=== PATIENT | female | born 2000 | race Caucasian/White ===

== ENCOUNTER 2021-07-23 16:55 | Emergency (ER) | payer BC, SELFPAY ==
[2021-07-23 16:59] VITALS: BP 134/76; PULSE 94; RESP 17; TEMP 36.3; O2SAT 99
--- NOTE | 2021-07-23 17:00 | DI.RAD_ITS ---
Exam(s) XR PELVIS AP EXAM: XR PELVIS AP CLINICAL HISTORY: pain post fall. TECHNIQUE: 2D digital imaging was performed. COMPARISON: No exams were available for comparison FINDINGS: No fractures. Hips appear unremarkable. Bone density normal. No osseous lesions. IMPRESSION: No significant findings DATA REPOSITORY: RADIATION DOSE DELIVERED:
--- NOTE | 2021-07-23 17:00 | DI.RAD_ITS ---
Exam(s) XR LUMBAR SPINE COMPLETE EXAM: XR LUMBAR SPINE COMPLETE CLINICAL HISTORY: pain post fall. TECHNIQUE: 2D digital imaging was performed. COMPARISON: No exams were available for comparison FINDINGS: No evidence of for obvious fracture. No listhesis. No pars defects. Slight invagination the dialysis tech ior half of the superior endplate of L4 is noted, age indeterminate. This may be Schmorl's node inva gination. Disc spaces exhibit normal height. No scoliosis. No osseous lesions. IMPRESSION: As above. If clinically indicated further study with MRI can be performed DATA REPOSITORY: RADIATION DOSE DELIVERED:
[2021-07-23] MEDS: Acetaminophen 500 MG TAB 1000 MG PO (17:41)
--- NOTE | 2021-07-23 17:43 | DI.VRAD_ITS ---
PROCEDURE INFORMATION: Exam: XR Lumbosacral Spine Exam date and time: 07/23/2021 5:37 PM Age: 20 years old Clinical indication: Injury or trauma; Other: Pain post fall; Blunt trauma (contusions or hematomas) TECHNIQUE: Imaging protocol: XR of the lumbosacral spine. Views: 4 or 5 views. COMPARISON: No relevant images were readily available for comparison purposes. FINDINGS: Bones/joints: There is slight bony irregularity seen along the superior endplate of L4. Lumbar vertebral body heights are otherwise well maintained. Alignment well preserved without significant listhesis. Soft tissues: Unremarkable. IMPRESSION: There is slight bony irregularity seen along the superior endplate of L4. This could be degenerative in nature however given the patient's young age a fracture cannot be entirely excluded. Please correlate point tenderness. MRI would better evaluate as clinically appropriate. Dictated and Authenticated by: Dion Butterfield MD. Ordering:TAMI Matos MD
--- NOTE | 2021-07-23 17:44 | DI.VRAD_ITS ---
PROCEDURE INFORMATION: Exam: XR Pelvis Exam date and time: 07/23/2021 5:07 PM Age: 20 years old Clinical indication: Injury or trauma; Other: Pain post fall; Blunt trauma (contusions or hematomas); Bilateral; Pelvic region TECHNIQUE: Imaging protocol: XR pelvis. Views: 1 or 2 view. COMPARISON: CR XR LUMBAR SPINE COMPLETE 07/23/2021 5:30 PM FINDINGS: Bones/joints: No acute fracture or dislocation. Soft tissues: Unremarkable. IMPRESSION: No acute fracture or dislocation. Dictated and Authenticated by: Dion Butterfield MD. Ordering:TAMI Matos MD
--- NOTE | 2021-07-23 17:45 | DI.CT_ITS ---
Exam(s) CT LUMBAR SPINE WO EXAM: CT LUMBAR SPINE WO CLINICAL HISTORY: pain post fall, possible l4 fracture. TECHNIQUE: Imaging Protocol: Axial computed tomography images with coronal and sagittal reformatted images were created and reviewed COMPARISON: CR,XR XR LUMBAR SPINE COMPLETE from 07/23/2021 FINDINGS: Bones: Some regularity of the superior endplate of L4 is noted. Shallow Schmorl's node invagination is noted at this level. There is no true height loss of the vertebra at this level, however, on the axial images there is suggestion of a subtle fracture of the vertebral body, not extending to the pe dicles. No retropulsed fragment. No compromise of the spinal canal at this level. INDIVIDUAL LEVELS: T12-L1:No disc herniation nor canal stenosis. Facet joints unremarkable. No foraminal stenosis. L1-2: No disc herniation nor canal stenosis. Facet joints unremarkable. No foraminal stenosis. L2-3: No disc herniation nor canal stenosis. Facet joints unremarkable. No Foraminal stenosis L3-4: No disc herniation nor canal stenosis. Facet joints unremarkable. No foraminal stenosis. L4-5: No disc herniation nor canal stenosis. L5-S1: No disc herniation or canal stenosis. The visualized sacroiliac joints and sacrum appear unremarkable. PARASPINAL SOFT TISSUES: Visualized paraspinal tissues appear unremarkable. No evidence of paraspinal hematoma. Urinary bladder is noted to to be distended. IMPRESSION: 1. Possible very subtle fracture of L4 vertebral body. Recommend follow-up MRI for added sensitivity /specificity. There is no compromise of the spinal canal. 2. Urinary bladder is noted to be distended. Study 1st read by [facility] Final report called by myself to ER provider Saturday07/24/2021 8:15 a.m. RADIATION DOSE DELIVERED: Total DLP DATA REPOSITORY: All CT scans at this facility are submitted to the National Radiology Data Registry (NRDR) Dose Index Registry (DIR) with the [employer] ([employer]). RADIATION OPTIMIZATION: All CT scans at this facility use at least one of these dose optimization te chniques: automated exposure control; mA and/or kV adjustment per patient size (includes targeted exa ms where dose is matched to clinical indication); or iterative reconstruction.
--- NOTE | 2021-07-23 17:45 | DI.CT_ITS ---
Exam(s) CT PELVIC WO EXAM: CT PELVIC WO CLINICAL HISTORY: possible fracture, pain. TECHNIQUE: Imaging Protocol: Axial computed tomography images with coronal and sagittal reformatted images were created and reviewed CONTRAST MATERIAL: Intravenous: none Oral: None COMPARISON: CT CT LUMBAR SPINE WO from 07/23/2021 FINDING: PELVIS: OSSEOUS: No pelvic nor hip fractures evident.No significant osseous lesions evident. ANTERIOR ABDOMINAL WALL/GI:No evidence of significant anterior abdominal wall nor inguinal hernia in the pelvis evident.No obvious bowel obstruction. No evidence of appendicitis.No evidence of acute si gmoid diverticulitis.No free fluid in the pelvis. LYMPH NODES: There is no intrapelvic nor inguinal adenopathy. URINARY BLADDER: The bladder is distended REPRODUCTIVE: Age-appropriate. IMPRESSION: 1. There are no pelvic fractures identified. No intrapelvic hematoma nor free fluid. 2. The urinary bladder is distended. RADIATION DOSE DELIVERED: Total DLP DATA REPOSITORY: All CT scans at this facility are submitted to the National Radiology Data Registry (NRDR) Dose Index Registry (DIR) with the [employer] ([employer]). RADIATION OPTIMIZATION: All CT scans at this facility use at least one of these dose optimization te chniques: automated exposure control; mA and/or kV adjustment per patient size (includes targeted exa ms where dose is matched to clinical indication); or iterative reconstruction.
--- NOTE | 2021-07-23 18:27 | DI.VRAD_ITS ---
PROCEDURE INFORMATION: Exam: CT Lumbar Spine Without Contrast Exam date and time: 07/23/2021 5:48 PM Age: 20 years old Clinical indication: Other: Pain post fall, possible l4 fracture TECHNIQUE: Imaging protocol: Computed tomography images of the lumbar spine without contrast. Radiation optimization: All CT scans at this facility use at least one of these dose optimization techniques: automated exposure control; mA and/or kV adjustment per patient size (includes targeted exams where dose is matched to clinical indication); or iterative reconstruction. COMPARISON: CR XR LUMBAR SPINE COMPLETE 11/16/2021 17:30 FINDINGS: Vertebrae: Lumbar vertebral bodies are normal in height and alignment with no sign of fracture. There is a small Schmorl's node in the superior endplate of L4 and inferior endplate of L2. Posterior elements are normal with no degenerative change. Discs/Spinal canal/Neural foramina: No significant disc protrusion. No severe spinal canal stenosis. No significant neural foraminal narrowing. Sacrum/coccyx: Visualized portion of sacrum and coccyx are normal. SI joints are normal. Soft tissues: Unremarkable. IMPRESSION: No acute findings. No evidence of lumbar fracture. Dictated and Authenticated by: Temo Murphy MD. Ordering:TAMI Matos MD
--- NOTE | 2021-07-23 18:29 | DI.VRAD_ITS ---
PROCEDURE INFORMATION: Exam: CT Pelvis Without Contrast; Skeletal Exam date and time: 07/23/2021 5:48 PM Age: 20 years old Clinical indication: Other: Possible fracture, pain TECHNIQUE: Imaging protocol: Computed tomography images of the pelvis without contrast. Exam focused on the skeletal structures. Radiation optimization: All CT scans at this facility use at least one of these dose optimization techniques: automated exposure control; mA and/or kV adjustment per patient size (includes targeted exams where dose is matched to clinical indication); or iterative reconstruction. COMPARISON: XR PELVIS AP 11/16/2021 17:35 FINDINGS: Bones/joints: Unremarkable. No acute fracture. No dislocation. Hip joints, sacroiliac joints and pubic symphysis all are normal. Soft tissues: Distended bladder is noted.. IMPRESSION: Normal CT of the pelvis. Dictated and Authenticated by: Temo Murphy MD. Ordering:TAMI Matos MD
--- NOTE | 2021-07-23 18:39 | W.ED.GENAD ---
Discharge Plan Disposition Patient Disposition: HOME Condition: Stable Discharge Details Clinical Impression: Low back strain [facility] Shawna Sotomayor Home Meds and New Rx's Prescriptions: New cyclobenzaprine 10 mg tablet 10 mg PO TID PRNQty: 10 RF: 0 Discharge Instructions Instructions: Low Back Strain (ED) Additional Instructions: pcp recheck with persistent pain, activity as tolerated motrin 600 mg every 8 hours with food tylenol every 6 hours 650 mg as needed flexeril for muscular pain return earlier with new or worsening complaints Discharge Data Discharge Date/Time-TO BE ENTERED AT DEPARTURE: 07/23/21 18:52 Medical Decision Making Patient appears well, she has been pain to the lumbar spine and pelvis, I did her x-ray which shows possible best my not any better there is soft. There is soft there are little bit soft there is superior endplate fracture ct negative for fracture pt ambulatory with steady gait flexeril prn pain recheck with pcp in 2-3 days return earlier with new or worsening complaints HPI General Mode of arrival: ambulatory. Date/Time Provider Initiated Documentation: 07/23/21 17:04. Limitations to Documentation: no limitations. Information obtained by: patient. HPI Narrative: This 20-year-old female presents status post fall while snowboarding. She landed on her buttocks and fell onto her back. She has pain predominantly in her lower back. She was not wearing a helmet but denies hitting her head or loss of consciousness. She denies any strength or sensation changes to her extremities. She denies any additional complaints at this time. She specifically denies any neck pain, abdominal pain or chance of . Related Data Home Medications Medication Instructions Recorded Confirmed cyclobenzaprine 10 mg PO TID PRN #10 tab 07/23/21 Previous Rx's Medication Instructions Recorded cyclobenzaprine 10 mg PO TID PRN #10 tab 07/23/21 Allergies Allergy/AdvReac Type Severity Reaction Status Date / Time No Known Allergies Allergy Unverified 07/23/21 17:47 General Stated Complaint: Orthopedic SUZANNA: 2 Review of Systems All systems reviewed & are unremarkable except as noted in HPI and below PFSH All Active Problems (Updated 07/24/21 @ 16:18 by SULAIMAN Monteiro) Low back strain (Acute) Social History Smoking/Tobacco Use Status: Current every day Tobacco Type: cigarettes Smoking risk assessment performed?: Yes Alcohol Intake: current Alcohol Intake frequency: a few times a week Alcohol type: beer Drug use: Daily Substance use type: marijuana Do you feel safe at home: Yes Do you feel safe in your relationship?: Yes Exam Const General: cooperative and comfortable HENMT Head: normal to inspection Eyes Pupils: PERRL Chest Other: No visible sign of trauma Resp Effort & Inspection: normal respiratory effort Auscultation: clear to auscultation bilaterally Cardio Rate: regular rate Rhythm: regular rhythm GI Other: Nontender abdominal exam Back/Spine/Pelvis Other: Tenderness midline to lumbar spine and right pelvis, no visible sign of trauma, no CVA tenderness or bruising Neuro General: patient alert and patient oriented x3 Other: GCS 15, strength and sensation distally Extrem Other: Right pelvic tenderness, no tenderness to hip, neurovascularly intact bilateral lower extremities, no visible sign of trauma to bilateral lower extremity Course Vital Signs Vital signs: Vital Signs Temperature 36.3 C L 07/23/21 16:59 Pulse 94 H 07/23/21 16:59 Respiratory Rate 17 07/23/21 16:59 Blood Pressure 134/76 07/23/21 16:59 Pulse Oximetry 99 07/23/21 16:59 Temperature 36.3 C L 07/23/21 16:59 Temperature Source Temporal Artery Scan 07/23/21 16:59 Pulse 94 H 07/23/21 16:59 Respiratory Rate 17 07/23/21 16:59 Respiratory Effort Non-Labored 07/23/21 17:42 Blood Pressure 134/76 07/23/21 16:59 Blood Pressure Position Sitting 07/23/21 16:59 Pulse Oximetry 99 07/23/21 16:59 Oxygen Delivery Method Room Air 07/23/21 16:59 Oxygen Flow Rate 0 07/23/21 16:59 Pain Level 5 07/23/21 17:41 PAWSS Have you Been Recently Intoxicated or Drunk Within the Last 30 days?: No Have you Ever Experienced Previous Episodes of Alcohol Withdrawal?: No Have you ever Experienced Withdrawal Seizures?: No Have you ever Experienced Delirium Tremens(DT)s?: No Have you ever undergone Alcohol Rehabilitation Treatment (i.e, inpt ot outpatient treatment programs)?: No Have you ever Experienced Blackouts?: No Have you ever Combined Alcohol with other Downers within the last 90 days?: No Have you ever Combined Alcohol with any other Substance of Abuse during the last 90 days?: No Positive Blood Alcohol level on Presentation? [PCS.BAL]: No Evidence of Increased Autonomic Activity (i.e. HR>120, tremor, sweating, agitation, nausea)?: No Result: 0
[2021-07-23] MEDS: Cyclobenzaprine 10 MG TAB PO (18:43)
[2021-07-23] MEDS: Ibuprofen 600 MG TAB PO (18:43)
[2021-07-23 19:10] VITALS: BP 116/76; PULSE 82; RESP 18; TEMP 36.7; O2SAT 99
--- NOTE | 2021-07-24 08:27 | ED.FU.B_ITS ---
I received a call from our radiologist on 07-24-21 at approximately 8:15 AM. Questions a subtle fracture of the L4 vertebral body, recommend MRI for follow- up. I contacted the patient on her cell phone, the number that was provided, and unfortunately she did not answer and her voicemail box was not set up and I was unable to leave a message. Per her documentation, it does not appear as though she has a primary care provider whom I can contact. I will continue trying to call her throughout the day and I have requested that our workers compensation legal secretary look at her contact info and hip to see if there is any other way to get in contact with the patient.
--- NOTE | 2021-07-24 08:53 | W.ED.FU ---
I received a call back from the patient at approximately 845 on the morning of 07-24-21. She reports that she is sore but denies any bowel or bladder issues, radiation of pain, numbness, tingling, weakness. She confirms that she does not have a primary care provider. We discussed the concern brought forth by our radiologist. Patient is agreeable to returning to the ER for an MRI. I was able to confirm with our radiology department that we can get her an MRI today at approximately 3:15 PM. Plan is for the patient to return to the ER around 2:30 PM to obtain an L-spine MRI without contrast. She was encouraged to return to the ER sooner for new or worsening symptoms.
== END 2021-07-23 18:52 | disposition home or self-care (01) ==
PROVIDERS: Emergency Provider Physician Assistant
DX: S39.012A Strain of muscle, fascia and tendon of lower back, initial encounter (principal); V00.311A Fall from snowboard, initial encounter
CPT/HCPCS: 99284; 72110; 72131; 72170; 72192; 99283

== ENCOUNTER 2021-07-24 14:43 | Emergency (ER) | payer BC, SELFPAY ==
[2021-07-24 14:49] VITALS: BP 143/108; PULSE 81; RESP 18; TEMP 36.7; O2SAT 100
--- NOTE | 2021-07-24 15:00 | DI.MRI_ITS ---
Exam(s) MR LUMBAR SPINE WO EXAM: MR LUMBAR SPINE WO CLINICAL HISTORY: fall snowboarding yesterday. TECHNIQUE: Multiplanar multisequence MRI of the Lumbar spine was performed. COMPARISON: Recent plain films and CT scan reviewed FINDINGS: Conus medullaris is at normal level. There is no evidence of conus mass nor subjacent clumping of in trathecal nerve roots to suggest arachnoiditis. The distal thecal sac appears unremarkable.There is no evidence of Tarlov intrasacral cysts nor other significant findings within the sacral canal Bones:There are no fractures nor ominous osseous lesions in the lumbar vertebral bodies and visualize d sacrum. At the superior endplate of L4 there is a small Schmorl's node invagination but there is n o intraosseous edema to suggest that this is acute. There are no compression fractures. With respect to the individual levels... T12-L1: Unremarkable L1-2: Normal disc height and signal. No disc herniation nor central canal stenosis.No foraminal steno sis L2-3: Normal disc height. No disc herniation nor central canal stenosis.No foraminal stenosis.No face t arthropathy. L3-4: Normal disc height. No disc herniation or central canal stenosis.No foraminal stenosis.No face t arthropathy. L4-5: Normal disc height and signal. Mild annular bulging but no significant disc herniation or cent ral canal stenosis. No foraminal stenosis. No facet arthropathy. L5-S1: Normal disc height and signal. There is a small central subligamentous disc protrusion extend s posteriorly 2 millimeters and is 6 millimeters wide. Does not significantly impress the anterior a spect of thecal sac. No central canal stenosis. No foraminal stenosis evident. No facet arthropath y. No ligamentum flavum hypertrophy. Soft tissues: paraspinal soft tissues appear unremarkable. IMPRESSION: 1. No evidence of acute fracture in the lumbar spine. Small nonacute Schmorl's node invagination sup erior endplate of L4 noted. 2. Mild central subligamentous disc protrusion at L5-S1 level. No canal stenosis at this level. No foraminal stenosis. Report called to ER provider 07/24/2021 at 4:10 p.m. DATA REPOSITORY:
--- NOTE | 2021-07-24 15:11 | ED.GENADUL_ITS ---
Discharge Plan Disposition Patient Disposition: HOME Condition: Good Discharge Details Clinical Impression: Low back strain Primary Care Provider: Catina,Local ED Provider: Candis Valdez Home Meds and New Rx's Prescriptions: Continued cyclobenzaprine 10 mg tablet 10 mg PO TID PRNQty: 10 RF: 0 Discharge Instructions Instructions: Low Back Strain (ED) Additional Instructions: Your MRI was reassuring here today. No evidence of fracture or acute pathology. As we discussed, your symptoms are likely associated with muscle spasm. Please encourage hydration. I expect that pain will be worse after prolonged periods of holding still likely wake up in the morning. Please encourage frequent walking and gentle stretching. Please avoid heavy lifting as this may increase her discomfort. You may continue with Tylenol and/or ibuprofen as needed for discomfort. May also try heat and/or cold therapy. Please continue with the Flexeril to help with muscle spasm as his previous prescribed, please do not drive will take this medication as it can make you sedated. If you develop sensation changes, weakness, difficulty with your bowel or bladder habits or other new/worsening symptoms please seek care urgently once again. Otherwise, I have asked her care management to help arrange follow-up with local primary care. Discharge Data Discharge Date/Time-TO BE ENTERED AT DEPARTURE: 07/24/21 16:43 Medical Decision Making Patient is a pleasant 20-year-old female presenting today for reevaluation after being evaluated yesterday. Patient suffered a back injury while snowboarding yesterday prompting her to be seek care in the department. Initial read on CT of her lumbar spine and pelvis with negative. However, this was over read by our radiologist. There was a concern for possible body fracture L4 vertebra. He recommended MRI. Patient returns for MRI. States that she has continued to have sharp pain in her back. Difficulty sleeping last night was quite stiff this morning. She denies any change in bowel or bladder habits. Denies any sensory changes or deficits. No weakness in her lower extremities. On exm, patient appears nontoxic. She has not used any medication for analgesic affect today. She has no evidence of weakness or hx concerning for cauda equina a tthis time. Patient ready for MRI. She reports hx of claustrophobia, will treat with 1mg PO ativan. UPT negative. Contacted by the radiologist. He advises that there is no evidence to suggest fracture no acute pathology. Discussed these findings the patient. I was able to do a neurologic exam. She continues to have 5-5 strength equal bilaterally lower extremities. Intact reflexes, no saddle paresthesias. Patient I discussed findings by the radiologist. I did advise that her likely continue discomfort is associated with muscle spasm, particularly as it seems to be worsening after prolonged pe riods of sitting or sleeping. She did have spasm on exam today. She has not yet filled the prescription for Flexeril. I advised that she continue continue with Tylenol and ibuprofen as needed for discomfort. I also advised that she may use heat or ice to help with her pain. Encourage frequent ambulation and gentle stretching. We did discuss activities that she should avoid. I will put her on follow-up list with local primary care for 2 weeks for reevaluation of her back pain and continued management if she continues to have any discomfort. Return precautions were discussed. All questions and concerns were addressed and she is agreement with this plan HPI General Mode of arrival: ambulatory . Date/Time Provider Initiated Documentation: 07/24/21 14:55 . Limitations to Documentation: no limitations . Information obtained by: patient, RN notes reviewed and old records reviewed . History of Present Illness 20 year old F presents to the emergency department with the chief complaint of lumbar back pain, advised to come in for MRI after evaluation yesterday, described as moderate, with intensity rated at 6. Quality is described as aching, and is localized to the back. Patient reports no radiation. Patient started experiencing this day(s) (1) and it has been constant. Movement improves symptom(s), Immoblization worsens symptoms (notices pain to increase and be more itght with prolonged periods of sitting) . Patient notes no other symptoms.. Patient did receive the following treatments prior to arrival, none (used NSAID and Flexeril yesterday) Related Data Home Medications Medication Instructions Recorded Confirmed cyclobenzaprine 10 mg PO TID PRN #10 tab 07/23/21 Previous Rx's Medication Instructions Recorded cyclobenzaprine 10 mg PO TID PRN #10 tab 07/23/21 Allergies Allergy/AdvReac Type Severity Reaction Status Date / Time No Known Allergies Allergy Unverified 07/23/21 17:47 General Stated Complaint: Orthopedic SUZANNA: 4 Review of Systems Constitutional Constitutional: Reports as per HPI, Denies fever(s), Denies frequent falls and Denies headache(s) ENT Ears, Nose, Mouth, and Throat: Denies headache(s) Cardiovascular Cardiovascular: Denies chest pain and Denies dyspnea Respiratory Respiratory: Denies cough and Denies dyspnea Gastrointestinal Gastrointestinal: Denies abdominal pain, Denies change in bowel habits and Denies fecal incontinence Genitourinary Genitourinary: Reports as per HPI, Denies urinary incontinence and Denies urinary hesitancy Musculoskeletal Musculoskeletal: Reports as per HPI, Reports back pain, Denies muscle weakness, Denies numbness, Denies radiating pain into limb, Reports stiffness and Denies tingling Integumentary/Breasts Skin/Breast: Reports as per HPI and Denies rash Neurologic Neurologic: Reports as per HPI, Denies frequent falls, Denies headache(s), Denies localized weakness, Denies numbness, Denies radicular pain, Denies sensory deficit, Denies tingling and Denies paresthesias PFSH All Active Problems (Updated 07/24/21 @ 16:18 by SULAIMAN Monteiro) Low back strain (Acute) Social History Smoking/Tobacco Use Status: Current every day Tobacco Type: cigarettes Smoking risk assessment performed?: Yes Alcohol Intake: current Alcohol Intake frequency: a few times a week Alcohol type: beer Drug use: Daily Substance use type: marijuana Do you feel safe at home: Yes Do you feel safe in your relationship?: Yes Exam Const General: cooperative, healthy appearing, comfortable, no acute distress, well developed and well groomed Nutritional Appearance: average body habitus and well nourished Orientation: alert and awake Eyes General: appearance normal, both eyes and all related structures Neck Neck: normal visual inspection, full ROM, no lymphadenopathy and no meningeal signs Resp Effort & Inspection: normal respiratory effort and able to speak in complete sentences Auscultation: clear to auscultation bilaterally, no rales, no rhonchi and no wheezes Cardio Rate: regular rate Rhythm: regular rhythm Heart Sounds: S1 normal and S2 normal Back/Spine/Pelvis Back: no CVA tenderness Cervical Spine: normal cervical lordosis, No cervical spinal tenderness and No step off deformity Thoracic/Lumbar Spine: thoracic and lumbar spine normal to inspection, paraspinal tenderness (lumbar spine), thoraco-lumbar spasm (lumbar spine, L>R although she has more tenderness on the right side), No thoracic spinal tenderness and lumbar spinal tenderness (diffuse pain, no focal point) Skin General skin exam: no rashes or lesions noted Neuro General: patient alert and patient awake Cognition: normal cognition Speech: speech normal Gait: normal gait Motor: muscle tone normal throughout, strength 5/5 throughout, no movement abnormalities noted and no fasciculations Sensory Exam: no sensory deficits noted (no saddle paresthesias) DTR's: Rt Ankle: 2+ and Lt Ankle: 2+ Extrem General: normal to inspection, full ROM, capillary refill normal, no joint enlargement, no pedal edema, no calf tenderness and normal gait Psych Appearance: grossly normal and well kempt Mental Status: mental status grossly normal Speech and Movement: speech and movement normal Course Vital Signs Vital signs: Vital Signs Temperature 36.7 C 07/24/21 14:49 Pulse 81 07/24/21 14:49 Respiratory Rate 18 07/24/21 14:49 Blood Pressure 143/108 H 07/24/21 14:49 Pulse Oximetry 100 07/24/21 14:49 Temperature 36.7 C 07/24/21 14:49 Temperature Source Tympanic 07/24/21 14:49 Pulse 81 07/24/21 14:49 Respiratory Rate 18 07/24/21 14:49 Respiratory Effort 07/24/21 14:52 Blood Pressure 143/108 H 07/24/21 14:49 Blood Pressure Position Supine 07/24/21 14:49 Pulse Oximetry 100 07/24/21 14:49 Oxygen Delivery Method Room Air 07/24/21 14:49 Oxygen Flow Rate 0 07/24/21 14:49 Pain Level 6 07/24/21 14:49
[2021-07-24] MEDS: LORazepam 1 MG TAB PO (15:27)
--- NOTE | 2021-07-25 07:04 | NUR.NOTE ---
Nursing Note: referral to cm for pcp/back pain
--- NOTE | 2021-07-26 09:48 | PDOC.ERCMACT ---
- If Service Date Differs Date of service: 07/26/21 Time of Service: 09:48 Care Management Activity Note Jane is seen in the ED for low back strain. At the request of ED provider, DELIA coordinates a referral to Wesley Martin MD, of [facility], on-call provider, to assist Jane in obtaining a follow up appointment and in establishing care with a PCP. She has [employer] for insurance.
== END 2021-07-24 16:43 | disposition home or self-care (01) ==
PROVIDERS: Emergency Provider Physician Assistant
DX: S39.012A Strain of muscle, fascia and tendon of lower back, initial encounter (principal); V00.311A Fall from snowboard, initial encounter
CPT/HCPCS: 81025; 99284; 72148; 99283